=== PATIENT | female | born 1955 | race Caucasian/White ===

== ENCOUNTER 2018-09-25 05:46 | Emergency (ER) | payer OTHER ==
[2018-09-25] MEDS ORDERED: Tetan/Diph/Pertus SYR(Tdap)* 0.5 ML SYR(BOOSTRIX) use SYR IM ONE (06:20)
--- NOTE | 2018-09-25 06:21 | ED ---
Bite Injury/Animal - HPI Summary HPI Summary: Patient is a 63-year-old female who presents emergency department for a dog bite wound to her left arm that occurred last evening around 1900. Patient states her and her rescued a dog yesterday and last night the returning to put any crate when it bit her left arm. Patient states dog's immunizations are up-to-date. She is unaware of her last tetanus immunization. She has no past medical history other than hypothyroidism. Symptoms are mild in severity. Touching left arm makes symptoms worse. Rest makes symptoms better. No other injuries were sustained. - History of Current Complaint Chief Complaint: EDAnimalBite Stated Complaint: DOG BITE Time Seen by Provider: 09/25/18 06:01 Hx Obtained From: Patient Pain Intensity: 5 - Allergies/Home Medications Allergies/Adverse Reactions: Allergies Allergy/AdvReac Type Severity Reaction Status Date / Time No Known Allergies Allergy Verified 09/25/18 05:57 PMH/Surg Hx/FS Hx/Imm Hx Previously Healthy: Yes - Cancer History Hx Chemotherapy: No Hx Radiation Therapy: No Infectious Disease History: No Infectious Disease History: Denies: Traveled Outside the [place] in Last 30 Days - Family History Known Family History: Positive: Non-Contributory - Social History Occupation: Retired Lives: With Family Review of Systems Positive: Other - bite wound left forearm Negative: Weakness, Paresthesia, Numbness All Other Systems Reviewed And Are Negative: Yes Physical Exam Triage Information Reviewed: Yes Vital Signs On Initial Exam: Initial Vitals Temp Pulse Resp BP Pulse Ox 98.4 F 74 16 127/85 99 09/25/18 05:50 09/25/18 05:50 09/25/18 05:50 09/25/18 05:50 09/25/18 05:50 Vital Signs Reviewed: Yes Appearance: Positive: Pain Distress - Patient sitting in bed, appears uncomfortable and nontoxic. Dressing on left arm. Skin: Positive: Warm, Dry Head/Face: Positive: Normal Head/Face Inspection Eyes: Positive: Normal, EOMI Neck: Positive: Supple Musculoskeletal: Positive: Other - Roughly 5cm deep skin flap noted to the left mid forearm on the ventral lateral aspect. No muscle or tendon exposure. Full ROM of distal hand and digits. No bony tenderness. Neurological: Positive: Normal, CN Intact II-III Psychiatric: Positive: Affect/Mood Appropriate Procedures - Laceration/Wound Repair 1 Location: upper extremity Description: Irregular Anesthesia: Local, 1.0% - 5 cc Length, Depth and Shape: 5cm irregular Betadine Prep?: No - hibiclens Laceration/Wound Explored: clean Closure: Single Layer Suture Type: Nylon - 4-0 Number of Sutures: 5 Layer Closure?: No Sterile Dressing Applied?: Yes Diagnostics - Vital Signs Vital Signs Temp Pulse Resp BP Pulse Ox 09/25/18 05:50 98.4 F 74 16 127/85 99 - Laboratory Lab Statement: Any lab studies that have been ordered have been reviewed, and results considered in the medical decision making process. Bite Injury Course/Dx - Course Course Of Treatment: Pt. presenting for dog bite that occured about 12 hours ago. Wound was extensively irrigated and cleaned by nurse. Tetanus was updated. Pt. does have a deep skin flap to left for arm. Case discussed with Dr. Kendrick who recommends loosely tacting down skin to allow for better healing. Wound edges were loosely approximated. Augmentin rx. Advised wound check with PCP in 3 days. Suture removal in 7-10 days. To keep wound clean and dry. To ice and elevate. Tylenol or motrin for pain as directed. To return to ER for redness, swelling or drainage from wound. Pt. understands and agrees with plan. - Diagnoses Differential Diagnosis/HQI/PQRI: Positive: Fracture, Laceration, Superficial Infection, Tenosynovitis Provider Diagnosis: Dog bite of extremity Discharge - Sign-Out/Discharge Documenting (check all that apply): Patient Departure - Discharge Plan Condition: Good Disposition: HOME Prescriptions: Amoxicillin/Clavulanate TAB* [Augmentin TAB 875*] 875 mg PO BID #20 tab Patient Education Materials: Animal Bite (ED) Referrals: Rosales Carrasco MD [Primary Care Provider] - Additional Instructions: Schedule a wound check with your PCP for 3 days Keep wound clean and dry Take antibiotic as directed Ice and elevate Tylenol or Motrin for pain as directed Return to ER if redness, swelling or drainage from wound - Billing Disposition and Condition Condition: GOOD Disposition: Home
[2018-09-25] MEDS ORDERED: Lidocaine 1%* 5 ML VIAL INJ ONE (07:07)
[2018-09-25] MEDS ORDERED: Lidocaine 1% INJ* 10 MG/ML 30 ML SDV ONE (07:16)
[2018-09-25 07:49] VITALS: BP 133/81
== END 2018-09-25 07:47 | disposition home or self-care (01) ==
LOC: ED 05:46
DX: S51.832A Puncture wound without foreign body of left forearm, initial encounter (principal); W54.0XXA Bitten by dog, initial encounter; Y92.009 Unspecified place in unspecified non-institutional (private) residence as the place of occurrence of the external cause
CPT/HCPCS: 12002; 90471; 90715; 99282